=== PATIENT | male | born 2005 | race Caucasian/White ===

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

== ENCOUNTER 2024-01-10 17:54 | Emergency (ER) | payer OTHER ==
[2024-01-10 18:18] VITALS: TEMP 98.1
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
--- NOTE | 2024-01-10 20:03 | XR ---
EXAMINATION TYPE: XR chest 2V DATE OF EXAM: 01/10/2024 7:50 PM CLINICAL INDICATION:Male, 18 years old with history of chest pain; [facility] COMPARISON: 02/22/2015 TECHNIQUE: XR chest 2V. Frontal and lateral views of the chest.. FINDINGS: Lines/Tubes/Devices: No indwelling lines are seen. Heart/mediastinum: Heart size is normal. Mediastinum appears normal. Pulmonary vascularity: Not increased, Lungs/Pleura: There is no evidence of pleural effusion, focal consolidation, or pneumothorax. Musculoskeletal: No acute osseous abnormality demonstrated in the limits of the exam. Other findings: None. IMPRESSION: No acute cardiopulmonary abnormality.
[2024-01-10 20:19] LABS: Basophils % (A) 0 %; Eosinophils % (A) 1 %; HCT 46.7 % (39.0-53.0); HGB 16.2 gm/dL (13.0-17.5); Lymphocytes # (A) 2.5 k/uL (1.0-4.8); Lymphocytes % (A) 26 %; MCH 31.8 pg (25.0-35.0); MCHC 34.7 g/dL (31.0-37.0); MCV 91.7 fL (80.0-100.0); Mean Platelet Volume 8.5; Monocytes # (A) 0.8 k/uL (0-1.0); Monocytes % (A) 9 %; Neutrophils # (A) 5.8 k/uL (1.3-7.7); Neutrophils % (A) 61 %; Platelet Count 321 k/uL (150-450); RBC 5.09 m/uL (4.30-5.90); RDW 12.4 % (11.5-15.5); WBC 9.6 k/uL (4.0-11.0)
[2024-01-10 20:24] LABS: ALT 23 U/L (4-49); AST 28 U/L (17-59); African American GFR (CKD) >90 (>60 ml/min/1.73 sqM); Albumin 4.7 g/dL (3.5-5.0); Alkaline Phosphatase 49 U/L (38-126); Anion Gap 12 mmol/L; Blood Urea Nitrogen 13 mg/dL (9-20); Calcium 9.9 mg/dL (8.4-10.2); Carbon Dioxide 20 mmol/L (22-30); Chloride 105 mmol/L (98-107); Glucose 89 mg/dL (74-99); Non-African American GFR(CKD) >90 (>60 ml/min/1.73 sqM); Potassium 3.5 mmol/L (3.5-5.1); Sodium 137 mmol/L (137-145); Total Bilirubin 1.2 mg/dL (0.2-1.3); Total Protein 7.7 g/dL (6.3-8.2)
[2024-01-10 21:18] VITALS: BP 132/71; PULSE 83; RESP 12
== END 2024-01-10 20:49 | disposition home or self-care (01) ==
LOC: EC 17:54
DX: R07.89 Other chest pain (principal)
CPT/HCPCS: 36415; 71046; 80053; 84484; 85025; 85379; 93005; 99285

== ENCOUNTER 2024-02-02 02:57 | Emergency (ER) | payer OTHER ==
[2024-02-02 03:10] VITALS: BP 150/81; PULSE 114; RESP 20; TEMP 98.1
--- NOTE | 2024-02-02 04:15 | ED ---
URI HPI - General Source: EMS Mode of arrival: EMS Limitations: no limitations <Dontae Garcia - Last Filed: 02/02/24 04:14> - General Source: patient, EMS Mode of arrival: EMS Limitations: no limitations - History of Present Illness MD Complaint: cough, nasal congestion <Stephanie Head - Last Filed: 02/04/24 07:19> - General Chief Complaint: Upper Respiratory Infection Stated Complaint: Flu like symptoms Time Seen by Provider: 02/02/24 04:14 - History of Present Illness Initial Comments: Quick note: 18-year-old male presenting with chief complaint of flulike symptoms. Symptoms have been ongoing for about a week. (Dontae Garcia) This is a 18-year-old male who presents to the emergency department for coughing, congestion, nausea, and vomiting. Symptoms started about a week ago with coughing and congestion. He did have some shortness of breath yesterday that has since resolved. Denies any history of asthma. Denies any sick contacts, but does work with the public. (Stephanie Head) - Related Data Home Medications Medication Instructions Recorded Confirmed Dextroamphetamine/Amphetamine 02/12/15 02/12/15 [Adderall] Previous Rx's Medication Instructions Recorded Cyclobenzaprine [Flexeril] 10 mg PO TID PRN #15 tab 01/10/24 Ibuprofen [Motrin] 600 mg PO Q8HR PRN #20 tab 01/10/24 Albuterol Sulfate [Albuterol 1 - 2 puff PO Q4-6H PRN #8.5 gm 02/02/24 Sulfate Hfa] Benzonatate [Tessalon Perle] 200 mg PO TID PRN #30 capsule 02/02/24 Ondansetron Odt [Zofran Odt] 4 mg PO Q8HR PRN #15 tab 02/02/24 predniSONE 50 mg PO DAILY 5 Days #5 tab 02/02/24 Allergies Allergy/AdvReac Type Severity Reaction Status Date / Time No Known Allergies Allergy Verified 02/02/24 03:05 Review of Systems ROS Other: All systems not noted in ROS Statement are negative. <Dontae Garcia - Last Filed: 02/02/24 04:14> ROS Other: All systems not noted in ROS Statement are negative. <Stephanie Head - Last Filed: 02/04/24 07:19> ROS Statement: Those systems with pertinent positive or pertinent negative responses have been documented in the HPI. Past Medical History Past Medical History: No Reported History History of Any Multi-Drug Resistant Organisms: None Reported Past Surgical History: No Surgical Hx Reported Past Psychological History: No Psychological Hx Reported Smoking Status: Never smoker Past Alcohol Use History: Occasional Past Drug Use History: None Reported, Marijuana <Dontae Garcia - Last Filed: 02/02/24 04:14> General Exam Limitations: no limitations <Dontae Garcia - Last Filed: 02/02/24 04:14> Limitations: no limitations General appearance: alert, in no apparent distress Head exam: Present: atraumatic, normocephalic, normal inspection Respiratory exam: Present: normal lung sounds bilaterally. Absent: respiratory distress, wheezes, rales, rhonchi, stridor Cardiovascular Exam: Present: regular rate, normal rhythm, normal heart sounds. Absent: systolic murmur, diastolic murmur, rubs, gallop, clicks Neurological exam: Present: alert, oriented X3, CN II-XII intact Psychiatric exam: Present: normal affect, normal mood Skin exam: Present: warm, dry, intact, normal color. Absent: rash <Stephanie Head - Last Filed: 02/04/24 07:19> - General Exam Comments Initial Comments: Visual Physical Exam Vital signs reviewed General: Well-appearing, nontoxic, no acute distress. Head: Normocephalic, atraumatic Eyes: PERRLA, EOMI ENT: Airway patent Chest: Nonlabored breathing Skin: No visual rash, normal skin tone Neuro: Alert and oriented 3 Musculoskeletal: No gross abnormalities (Dontae Garcia) Course Vital Signs 02/02/24 03:01 Temperature 98.1 F Pulse Rate 114 H Respiratory 20 Rate Blood Pressure 150/81 O2 Sat by Pulse 100 Oximetry Medical Decision Making <Dontae Garcia - Last Filed: 02/02/24 04:14> - Radiology Data Radiology results: report reviewed, image reviewed <Stephanie Head - Last Filed: 02/04/24 07:19> - Medical Decision Making I performed the quick note portion of this visit, electronically signed Dontae Garcia PA-C (Dontae Garcia) This is a 18 year old male who presents to the emergency department for coughing and congestion. Was pt. sent in by a medical professional or institution? @ -No Did you speak to anyone other than the patient for history? @ -No Did you review nursing and triage notes? @ -Yes, and I agree, it is accurate with regards to the patient's symptoms. Were old charts reviewed? @ -No Differential Diagnosis? @ -Differential Cough: Influenza, Covid, RSV, croup, allergic rhinitis, GERD, pneumonia, bronchitis, COPD, viral pharyngitis, streptococcal pharyngitis, this is not meant to be an all-inclusive list. EKG interpreted by me (3pts min.)? @ -Not obtained X-rays interpreted by me (1pt min.)? @ -Chest x-ray obtained, my interpretation identifies no localized consolidations or infiltrates. CT interpreted by me (1pt min.)? @ -Not obtained U/S interpreted by me (1pt. min.)? @ -Not obtained What testing was considered but not performed? (CT, X-rays, U/S, labs)? Why? @ -None What meds were considered but not given? Why? @ -None Did you discuss the management of the patient with other professionals? @ -No Did you reconcile home meds? @ -No Was smoking cessation discussed for >3mins.? @ -No Was critical care preformed (if so, how long)? @ -No Were there social determinants of health that impacted care today? How? (Homelessness, low income, unemployed, alcoholism, drug addiction, transportation, low edu. Level, literacy, decrease access to med. care, fci, rehab)? @ -No Was there de-escalation of care discussed even if they declined? (Discuss DNR or withdrawal of care, Hospice)? @ -No What co-morbidities impacted this encounter? (DM, HTN, Smoking, COPD, CAD, Cancer, CVA, Hep., AIDS, mental health diagnosis, sleep apnea, morbid obesity)? @ -None Was patient admitted / discharged? @ -Discharged. COVID, influenza, and RSV testing negative. Chest x-ray reveals no acute process. Advised the patient that we will aim to treat his symptoms. Prescription for prednisone, Tessalon Perles, albuterol inhaler, and Zofran provided with dosing instructions reviewed. Patient discharged home in stable condition and advised to follow-up with his primary care provider. Undiagnosed new problem with uncertain prognosis? @ -None Drug Therapy requiring intensive monitoring for toxicity (Heparin, Nitro, Insulin, Cardizem)? @ -None Were any procedures done? @ -None Diagnosis/symptom? @ -Bronchitits, nausea and vomiting Acute, or Chronic, or Acute on Chronic? @ -Acute Uncomplicated (without systemic symptoms) or Complicated (systemic symptoms)? @ -Uncomplicated Side effects of treatment? @ -None Exacerbation, Progression, or Severe Exacerbation] @ -Not applicable Poses a threat to life or bodily function? @ -No Return precautions reviewed in depth, the patient is instructed to return to the emergency department with any new, worsening, or concerning symptoms. Patient verbalized understanding. This case was discussed in detail with the attending ED physician, Dr. Grace. Presentation, findings, and treatment plan discussed in detail as well. (Stephanie Head) - Lab Data Lab Results 02/02/24 Range/Units 03:07 Influenza Type A (PCR) Not Detected (Not Detectd) Influenza Type B (PCR) Not Detected (Not Detectd) RSV (PCR) Not Detected (Not Detectd) SARS-CoV-2 (PCR) Not Detected (Not Detectd) Disposition <Dontae Garcia - Last Filed: 02/02/24 04:14> Is patient prescribed a controlled substance at d/c from ED?: No Time of Disposition: 06:12 <Stephanie Head - Last Filed: 02/04/24 07:19> Clinical Impression: Bronchitis Disposition: HOME SELF-CARE Instructions (If sedation given, give patient instructions): Nosebleed (ED), Acute Bronchitis (ED) Additional Instructions: Return to the emergency department with any new, worsening, or concerning symptoms. Take the prednisone daily for 5 days. You can take the cough medication up to every 8 hours as needed. You can use the albuterol inhaler every 4-6 hours for shortness of breath. Use saline nasal spray several times daily to help moisten the nasal passages and reduce the risk of additional nosebleeds. If you develop a nosebleed that you are unable to control, use [id number] Afrin nasal spray to help stop it. Continue to alternate with ibuprofen and Tylenol for any additional fevers. Follow up with your primary care provider in 1-2 days. Prescriptions: Albuterol Sulfate [Albuterol Sulfate Hfa] 1 - 2 puff PO Q4-6H PRN #8.5 gm PRN Reason: Shortness Of Breath predniSONE 50 mg PO DAILY 5 Days #5 tab Benzonatate [Tessalon Perle] 200 mg PO TID PRN #30 capsule PRN Reason: Cough Ondansetron Odt [Zofran Odt] 4 mg PO Q8HR PRN #15 tab PRN Reason: Nausea And Vomiting Referrals: None,Stated [Primary Care Provider] - 1-2 days
--- NOTE | 2024-02-02 05:57 | XR ---
EXAM: XR Chest, 2 Views CLINICAL HISTORY: cough TECHNIQUE: Frontal and lateral views of the chest. COMPARISON: February 12, 2015 FINDINGS: Lungs: Unremarkable. No infiltration, atelectasis or mass density. Pleural space: Unremarkable. No pneumothorax. No pleural fluid. Heart: Unremarkable. No cardiomegaly. Mediastinum: Unremarkable. Normal mediastinal contour. Bones/joints: Unremarkable. No acute abnormalities. IMPRESSION: Negative chest x-rays.
== END 2024-02-02 06:28 | disposition home or self-care (01) ==
LOC: EC 02:57
DX: J40 Bronchitis, not specified as acute or chronic (principal)
CPT/HCPCS: 71046; 87636; 99284